=== PATIENT | female | born 1940 | race Caucasian/White ===

== ENCOUNTER → 2019-04-11 | Outpatient (CLI) | payer OTHER | END | disposition home or self-care (01) | LOC: RAH 09:48 → EDBD 10:30 | PROVIDERS: ATTEND Internal Medicine Cardiovascular Disease | DX: R16.0 Hepatomegaly, not elsewhere classified (principal); I70.0 Atherosclerosis of aorta | CPT/HCPCS: 76700 ==

== ENCOUNTER 2019-07-31 12:53 | Inpatient (IN) | payer OTHER ==
[~2019-07-31] VITALS: Ht 165.1 cm; Wt 75.4 kg
[2019-07-31] MEDS ORDERED: ONDANSETRON HCL 4 MG/2 ML VIAL ONE (13:36)
[2019-07-31 15:39] LABS: BASOPHILS % (AUTO) 0.3 % (0.0-5.0); EOSINOPHILS % (AUTO) 0.1 % (0.0-8.0); HEMATOCRIT 27.3 % (36-48); LYMPHOCYTES % (AUTO) 16.2 % (21.0-51.0); MEAN CORPUSCULAR HEMOGLOBIN 25.1 pg (27.0-33.0); MEAN CORPUSCULAR HGB CONC 29.7 g/dL (32.0-36.0); MEAN CORPUSCULAR VOLUME 84.5 fL (79-99); MONOCYTES % (AUTO) 10.3 % (3.0-13.0); NEUTROPHILS % (AUTO) 72.6 % (40.0-77.0); NUCLEATED RED BLOOD CELLS 0.6 % (0.0-0.19); PLATELET COUNT (AUTO) 386 K/uL (130-400); RED BLOOD CELL COUNT(AUTO) 3.23 MIL/uL (4.00-5.50); RED CELL DISTRIBUTION WIDTH 18.7 % (11.0-15.5); WHITE BLOOD COUNT (AUTO) 9.3 K/uL (4.8-10.8)
[2019-07-31 15:56] LABS: CREATININE 0.9 mg/dL (0.5-1.5); POTASSIUM 3.6 mmol/L (3.5-5.1)
[2019-07-31 15:59] LABS: INR 1.25 (0.85-1.15); PARTIAL THROMBOPLASTIN TIME 27.4 SEC (26.3-35.5); PROTHROMBIN TIME 13.4 SEC (9.6-11.6)
[2019-07-31 16:01] LABS: BILIRUBIN,TOTAL 0.9 mg/dL (0.2-1.0); TOTAL PROTEIN, SERUM 6.5 g/dL (6.0-8.3)
[2019-07-31] MEDS ORDERED: FUROSEMIDE 10 MG/ML 2ML VIAL IV SCH (18:15)
[2019-07-31] MEDS ORDERED: FUROSEMIDE 10 MG/ML 2ML VIAL ONE (18:44)
[2019-07-31] MEDS ORDERED: METOCLOPRAMIDE 10 MG/2 ML VIAL ONE (18:44)
[2019-07-31] MEDS ORDERED: NITROGLYCERIN 0.4 MG SL TAB SL PRN (19:00)
[2019-07-31] MEDS ORDERED: ONDANSETRON HCL 4 MG/2 ML VIAL IV PRN (19:00)
[2019-07-31] MEDS ORDERED: HYDRALAZINE HCL 20 MG/ML VIAL IV PRN (19:00)
[2019-07-31] MEDS ORDERED: ACETAMINOPHEN 325 MG TAB PO PRN (19:00)
[2019-07-31] MEDS ORDERED: LACTULOSE 20 GM/30 ML UDCUP PO PRN (19:00)
[2019-07-31 22:23] LABS: TROPONIN I 0.05 ng/mL (0.00-0.06)
[2019-07-31 22:35] LABS: APPEARANCE,URINE Clear (CLEAR); BILIRUBIN,URINE Negative (NEGATIVE); COLOR,URINE Yellow (YELLOW); GLUCOSE, URINE (UA) Negative (NEGATIVE); KETONES,URINE Trace mg/dL (NEGATIVE); LEUKOCYTE ESTERASE ,URINE Moderate (NEGATIVE); NITRATE,URINE Negative (NEGATIVE); OCCULT BLOOD,URINE Negative (NEGATIVE); PROTEIN,URINE POS 1+ mg/dL (NEGATIVE); UROBILINOGEN,URINE 0.2 mg/dL (0.2-1.0)
[2019-07-31 22:54] LABS: BACTERIA,URINE None Seen /HPF (None Seen); MUCUS,URINE Few LPF (None Seen); RBC,URINE None Seen /HPF (0-1); SQUAMOUS EPITHELIAL CELL,UR Few /HPF (0-2)
[2019-07-31 22:59] VITALS: BP 132/74
[2019-08-01 03:31] VITALS: BP 133/61
[2019-08-01 04:32] LABS: BASOPHILS % (AUTO) 0.4 % (0.0-5.0); EOSINOPHILS % (AUTO) 0.2 % (0.0-8.0); HEMATOCRIT 25.9 % (36-48); LYMPHOCYTES % (AUTO) 16.6 % (21.0-51.0); MEAN CORPUSCULAR HEMOGLOBIN 25.3 pg (27.0-33.0); MEAN CORPUSCULAR HGB CONC 29.7 g/dL (32.0-36.0); MEAN CORPUSCULAR VOLUME 85.2 fL (79-99); MONOCYTES % (AUTO) 11.3 % (3.0-13.0); NEUTROPHILS % (AUTO) 70.8 % (40.0-77.0); NUCLEATED RED BLOOD CELLS 0.9 % (0.0-0.19); PLATELET COUNT (AUTO) 321 K/uL (130-400); RED BLOOD CELL COUNT(AUTO) 3.04 MIL/uL (4.00-5.50); RED CELL DISTRIBUTION WIDTH 18.9 % (11.0-15.5)
[2019-08-01 05:07] LABS: CREATININE 0.9 mg/dL (0.5-1.5); THYROID STIMULATING HORMONE 8.4 uIU/mL (0.36-3.74)
[2019-08-01] MEDS: LEVOTHYROXINE 100 MCG TABLET PO SCH (06:06)
[2019-08-01] MEDS: ACETAMINOPHEN 325 MG TAB PO PRN ×2 (06:20→18:56)
[2019-08-01] MEDS ORDERED: PANTOPRAZOLE 40 MG/VIAL IVP SCH (07:30)
[2019-08-01 07:51] VITALS: BP 139/75
[2019-08-01] MEDS: FAMOTIDINE 20MG TAB 20 MG TAB PO SCH (10:27)
[2019-08-01] MEDS: FUROSEMIDE 10 MG/ML 2ML VIAL IV SCH ×2 (10:27→18:20)
[2019-08-01] MEDS: AMLODIPINE BESYLATE 5 MG TAB PO SCH (10:27)
[2019-08-01] MEDS: PANTOPRAZOLE SODIUM 40 MG TABLET.DR PO SCH ×2 (10:27→16:47)
[2019-08-01 10:58] VITALS: BP 136/76
--- NOTE | 2019-08-01 12:45 | NUR ---
DCP CM met with pt discussed dc plans. Pt is semi-independent prior to admission, lives at home with spouse. Pt has a walker. Denies any other equipments/services. Feels safe to go back home, spouse able to assist with transportation and needs as necessary. DC plan to home once stable. CM to cont to follow up. Addendum: 08/01/19 at 1246 by HANS ARIZMENDI LVN CM Amended: Links added.
[2019-08-01] MEDS ORDERED: SUCR1TAB2 PO (15:41)
[2019-08-01] MEDS ORDERED: LEVO100T4 PO (15:41)
[2019-08-01] MEDS ORDERED: MELA5TAB14 PO (15:41)
[2019-08-01] MEDS ORDERED: FLUO40CA49 PO (15:41)
[2019-08-01] MEDS ORDERED: LIDO700A30 TP (15:41)
[2019-08-01 16:24] VITALS: BP 130/67
[2019-08-01 20:16] VITALS: BP 122/70
[2019-08-01 23:35] VITALS: BP 127/79
[2019-08-02] MEDS: FUROSEMIDE 10 MG/ML 2ML VIAL IV SCH ×3 (02:11→23:59)
[2019-08-02 04:26] VITALS: BP 115/69
[2019-08-02 04:56] LABS: BASOPHILS % (AUTO) 0.7 % (0.0-5.0); HEMATOCRIT 25.9 % (36-48); LYMPHOCYTES % (AUTO) 18.4 % (21.0-51.0); MEAN CORPUSCULAR HEMOGLOBIN 24.8 pg (27.0-33.0); MEAN CORPUSCULAR HGB CONC 29.7 g/dL (32.0-36.0); MEAN CORPUSCULAR VOLUME 83.3 fL (79-99); MONOCYTES % (AUTO) 12.3 % (3.0-13.0); NEUTROPHILS % (AUTO) 67.2 % (40.0-77.0); NUCLEATED RED BLOOD CELLS 0.7 % (0.0-0.19); PLATELET COUNT (AUTO) 303 K/uL (130-400); RED BLOOD CELL COUNT(AUTO) 3.11 MIL/uL (4.00-5.50); RED CELL DISTRIBUTION WIDTH 19.4 % (11.0-15.5); WHITE BLOOD COUNT (AUTO) 6.8 K/uL (4.8-10.8)
[2019-08-02 05:09] LABS: B-TYPE NATRIURETIC PEPTIDE 327 pg/mL (0-100)
[2019-08-02 05:46] LABS: CREATININE 1.2 mg/dL (0.5-1.5); MAGNESIUM 1.6 mg/dL (1.80-2.40); PHOSPHORUS 3.1 mg/dL (2.5-4.9); POTASSIUM 3.2 mmol/L (3.5-5.1)
[2019-08-02] MEDS: LEVOTHYROXINE 100 MCG TABLET PO SCH (06:41)
[2019-08-02] MEDS: PANTOPRAZOLE SODIUM 40 MG TABLET.DR PO SCH ×2 (06:41→16:27)
[2019-08-02 08:00] VITALS: BP 128/74
[2019-08-02] MEDS: FAMOTIDINE 20MG TAB 20 MG TAB PO SCH (09:07)
[2019-08-02] MEDS: AMLODIPINE BESYLATE 5 MG TAB PO SCH (09:08)
[2019-08-02 12:00] VITALS: BP 125/71
--- NOTE | 2019-08-02 12:30 | NUR ---
DR. DELGADO IN TO SEE PT.ORDERS THEN GIVEN. PLAN FOR A ZARIA IN AM AND HAS EXPLAINED TO PT. AND FAMILY MEMBER PROCEDURE
[2019-08-02] MEDS: FERROUS SULFATE 325 MG TABLET.DR PO SCH ×3 (13:20→22:00)
[2019-08-02] MEDS: ACETAMINOPHEN 325 MG TAB PO PRN ×2 (13:22→20:52)
[2019-08-02 16:00] VITALS: BP 129/72
[2019-08-02] MEDS ORDERED: POTASSIUM CHLORIDE 20 MEQ ERTAB PO SCH (16:00)
[2019-08-02] MEDS ORDERED: MAGNESIUM 2GM PREMIX 50ML 50 ML IV SCH (16:00)
--- NOTE | 2019-08-02 16:00 | NUR ---
STATES VERY TIRED AND FEELS WEAK, LOOKS FRAIL
--- NOTE | 2019-08-02 18:00 | NUR ---
WILL OBTAIN CONSENT FOR ZARIA.
[2019-08-02 20:48] VITALS: BP 119/70
[2019-08-02] MEDS ORDERED: MAGNESIUM OXIDE 400 MG TABLET PO ONE (23:42)
[2019-08-02] MEDS: MAGNESIUM OXIDE 400 MG TABLET PO SCH (23:49)
[2019-08-03] VITALS (15 sets, daily range): BP systolic 107–134; BP diastolic 62–74
[2019-08-03] MEDS: LEVOTHYROXINE 100 MCG TABLET PO SCH (05:47)
[2019-08-03] MEDS: FERROUS SULFATE 325 MG TABLET.DR PO SCH ×3 (06:00→21:20)
[2019-08-03] MEDS ORDERED: LIDOCAINE HCL-MPF 1% 2ML VIAL IV PRN (06:30)
[2019-08-03] MEDS ORDERED: POTASSIUM CHLORIDE 20MEQ/100ML 100 ML IV PRN (06:30)
[2019-08-03 06:31] LABS: BASOPHILS % (AUTO) 0.6 % (0.0-5.0); EOSINOPHILS % (AUTO) 0.6 % (0.0-8.0); HEMATOCRIT 25.7 % (36-48); LYMPHOCYTES % (AUTO) 17.6 % (21.0-51.0); MEAN CORPUSCULAR HEMOGLOBIN 24.8 pg (27.0-33.0); MEAN CORPUSCULAR VOLUME 82.6 fL (79-99); MONOCYTES % (AUTO) 10.6 % (3.0-13.0); NUCLEATED RED BLOOD CELLS 0.4 % (0.0-0.19); PLATELET COUNT (AUTO) 248 K/uL (130-400); RED BLOOD CELL COUNT(AUTO) 3.11 MIL/uL (4.00-5.50); RED CELL DISTRIBUTION WIDTH 19.3 % (11.0-15.5); WHITE BLOOD COUNT (AUTO) 7.1 K/uL (4.8-10.8)
[2019-08-03 06:52] LABS: INR 1.24 (0.85-1.15); PARTIAL THROMBOPLASTIN TIME 29.7 SEC (26.3-35.5); PROTHROMBIN TIME 13.3 SEC (9.6-11.6)
[2019-08-03 07:23] LABS: B-TYPE NATRIURETIC PEPTIDE 395 pg/mL (0-100)
[2019-08-03] MEDS: PANTOPRAZOLE SODIUM 40 MG TABLET.DR PO SCH ×2 (07:30→16:39)
[2019-08-03 08:07] LABS: CREATININE 1.1 mg/dL (0.5-1.5); MAGNESIUM 1.7 mg/dL (1.80-2.40); PHOSPHORUS 2.8 mg/dL (2.5-4.9); POTASSIUM 3.1 mmol/L (3.5-5.1)
[2019-08-03] MEDS: KETOROLAC TROMETHAMINE 15MG/ML IV PRN (08:18)
[2019-08-03] MEDS: VITAMIN B COMPLEX 1 CAPSULE PO SCH (09:00)
[2019-08-03] MEDS ORDERED: LIDOCAINE HCL 2% VISCOUS 15 ML UDCUP ONE (10:24)
[2019-08-03] MEDS ORDERED: MIDAZOLAM HCL 1 MG/ML 2ML VIAL ONE (10:25)
[2019-08-03] MEDS ORDERED: FENTANYL CITRATE PF 50 MCG/1 ML 2ML VIAL ONE (10:25)
--- NOTE | 2019-08-03 11:15 | NUR ---
ZARIA PROCEDURE PERFORMED BY DR Ana CARDONA AND TOLERATED PROCEDURE. END OF PROCEDURE AT 1050. PATIENT RECOVERED IN PROCEDURE ROOM. REPORT GIVEN TO Shelby GREEN RN AND PATIENT TRANSPORTED TO [facility] VIA BED AT 1115. DROWSY AND RESPONDS TO STIMULI WITH NO C/O PAIN.
[2019-08-03] MEDS: MAGNESIUM OXIDE 400 MG TABLET PO SCH (23:02)
[2019-08-04] VITALS (7 sets, daily range): BP systolic 117–139; BP diastolic 59–75
[2019-08-04 04:31] LABS: BASOPHILS % (AUTO) 0.5 % (0.0-5.0); EOSINOPHILS % (AUTO) 0.6 % (0.0-8.0); HEMATOCRIT 24.9 % (36-48); LYMPHOCYTES % (AUTO) 19.5 % (21.0-51.0); MEAN CORPUSCULAR HEMOGLOBIN 24.1 pg (27.0-33.0); MEAN CORPUSCULAR HGB CONC 29.3 g/dL (32.0-36.0); MEAN CORPUSCULAR VOLUME 82.2 fL (79-99); MONOCYTES % (AUTO) 13.3 % (3.0-13.0); NEUTROPHILS % (AUTO) 65.8 % (40.0-77.0); NUCLEATED RED BLOOD CELLS 0.5 % (0.0-0.19); PLATELET COUNT (AUTO) 227 K/uL (130-400); RED BLOOD CELL COUNT(AUTO) 3.03 MIL/uL (4.00-5.50); RED CELL DISTRIBUTION WIDTH 19.6 % (11.0-15.5); WHITE BLOOD COUNT (AUTO) 6.5 K/uL (4.8-10.8)
[2019-08-04 04:51] LABS: INR 1.25 (0.85-1.15); PARTIAL THROMBOPLASTIN TIME 30.8 SEC (26.3-35.5); PROTHROMBIN TIME 13.4 SEC (9.6-11.6)
[2019-08-04 04:59] LABS: ALBUMIN 2.6 g/dL (3.5-5.0); BILIRUBIN,TOTAL 0.7 mg/dL (0.2-1.0); CREATININE 1.1 mg/dL (0.5-1.5); POTASSIUM 3.3 mmol/L (3.5-5.1); TOTAL PROTEIN, SERUM 5.6 g/dL (6.0-8.3)
[2019-08-04] MEDS ORDERED: LIDOCAINE HCL-MPF 1% 2ML VIAL IV PRN (05:30)
[2019-08-04] MEDS ORDERED: POTASSIUM CHLORIDE 10% ELIXIR 20 MEQ/15 ML UDCUP PO PRN (05:30)
[2019-08-04] MEDS ORDERED: POTASSIUM CHLORIDE 10MEQ/100ML 100 ML IV PRN (05:30)
[2019-08-04] MEDS: LEVOTHYROXINE 100 MCG TABLET PO SCH (05:47)
[2019-08-04] MEDS: FERROUS SULFATE 325 MG TABLET.DR PO SCH ×3 (05:47→20:50)
[2019-08-04] MEDS: PANTOPRAZOLE SODIUM 40 MG TABLET.DR PO SCH ×2 (05:47→16:46)
[2019-08-04] MEDS: POTASSIUM CHLORIDE 20 MEQ ERTAB PO PRN ×2 (05:49→20:53)
--- NOTE | 2019-08-04 07:25 | NUR ---
Gilmar DIALLO PA-C, IN ROOM SPEAKING WITH PT. RE:PLAN OF CARE INCLUDING, DR. MACIEL CONSULT. PT. VERBALIZED UNDERSTANDING.
[2019-08-04] MEDS: VITAMIN B COMPLEX 1 CAPSULE PO SCH (07:53)
--- NOTE | 2019-08-04 10:15 | NUR ---
DR. Palak PEOPLES IN ROOM SPEAKING WITH PT. RE:PLAN OF CARE AND ANSWERING QUESTIONS.
--- NOTE | 2019-08-04 10:51 | NUR ---
NOTIFIED RAFAEL FISHMAN, RE:PT. WITH 12 BEATS ABERRANT CONDUCTION, PT. ASYMPTOMATIC. VERBALIZED UNDERSTANDING. NO NEW ORDERS RECEIVED AT THIS TIME.
[2019-08-04] MEDS ORDERED: PHARMACY COMMUNICATION MISC SCH ×2 (14:00→14:30)
--- NOTE | 2019-08-04 14:12 | NUR ---
DR. JERONIMO IN ROOM SPEAKING WITH PT. RE:PLAN OF CARE. QUESTIONS ANSWERED BY DR. JERONIMO, PT. VERBALIZED UNDERSTANDING.
[2019-08-04] MEDS: LEVOFLOXACIN 500 MG/D5W 100 ML 100 ML IV SCH (16:46)
--- NOTE | 2019-08-04 20:30 | NUR ---
Dr.Sheriff Bernal jewel hole driller,made rounds and updated with patient status and plan of care,received order to place patient for Cardiac cath on Wednesday and keep patient NPO postmidnight on Wednesday.
[2019-08-04] MEDS: MAGNESIUM OXIDE 400 MG TABLET PO SCH (20:49)
[2019-08-04] MEDS: LISINOPRIL 2.5 MG TABLET PO SCH (20:50)
[2019-08-04] MEDS: FUROSEMIDE 20 MG TABLET PO SCH (20:50)
[2019-08-04] MEDS: ACETAMINOPHEN 325 MG TAB PO PRN (22:56)
[2019-08-04] MEDS ORDERED: KETOROLAC TROMETHAMINE 15MG/ML ONE (23:55)
[2019-08-04] MEDS: KETOROLAC TROMETHAMINE 15MG/ML IV PRN (23:58)
--- NOTE | 2019-08-05 | NUR ---
Patient c/o unable to sleep and her left upper chest hurts ,denies chest pain,palpitation and shortness of breath.No ST T changes on the monitor per desk monitor.PRN Toradol IV given.Will continue to monitor pt.
--- NOTE | 2019-08-05 02:08 | NUR ---
Patient resting well, respirations even and non labored.
[2019-08-05 03:20] VITALS: BP 114/70
[2019-08-05] MEDS: FERROUS SULFATE 325 MG TABLET.DR PO SCH ×3 (05:57→20:34)
[2019-08-05] MEDS: LEVOTHYROXINE 100 MCG TABLET PO SCH (05:57)
[2019-08-05] MEDS: PANTOPRAZOLE SODIUM 40 MG TABLET.DR PO SCH ×2 (05:57→16:19)
--- NOTE | 2019-08-05 07:17 | NUR ---
Endorsed care to incoming NOD using SBAR,all questions answered.Patient remained stable.O2 Sats remained 100% on room air through the night.
[2019-08-05 08:00] VITALS: BP 121/67
[2019-08-05] MEDS: VITAMIN B COMPLEX 1 CAPSULE PO SCH (09:39)
[2019-08-05] MEDS: FUROSEMIDE 20 MG TABLET PO SCH ×2 (09:39→20:34)
[2019-08-05] MEDS: LISINOPRIL 2.5 MG TABLET PO SCH (09:39)
--- NOTE | 2019-08-05 10:15 | NUR ---
DR. Rodrigue JERONIMO IN ROOM SPEAKING WITH PT. RE:PLAN OF CARE. QUESTIONS ANSWERED BY DR. JERONIMO.
[2019-08-05 11:38] VITALS: BP 125/76
[2019-08-05] MEDS ORDERED: MAG HYDROX/AL HYDROX/SIMETH ES 30 ML SUSP UDCUP PO PRN (14:45)
[2019-08-05 16:00] VITALS: BP 124/73
[2019-08-05] MEDS: LEVOFLOXACIN 500 MG/D5W 100 ML 100 ML IV SCH (16:19)
[2019-08-05 19:39] VITALS: BP 108/62
[2019-08-05 23:04] VITALS: BP 111/65
[2019-08-06] MEDS ORDERED: TEMAZEPAM 7.5 MG CAPSULE PO ONE ×2 (00:42→00:45)
[2019-08-06] MEDS: MAGNESIUM OXIDE 400 MG TABLET PO SCH ×2 (00:43→19:23)
[2019-08-06 04:34] LABS: HEMATOCRIT 25.9 % (36-48); MEAN CORPUSCULAR HGB CONC 28.6 g/dL (32.0-36.0); MEAN CORPUSCULAR VOLUME 84.1 fL (79-99); NUCLEATED RED BLOOD CELLS 0.3 % (0.0-0.19); RED BLOOD CELL COUNT(AUTO) 3.08 MIL/uL (4.00-5.50); RED CELL DISTRIBUTION WIDTH 20.1 % (11.0-15.5); WHITE BLOOD COUNT (AUTO) 6.8 K/uL (4.8-10.8)
[2019-08-06 04:36] VITALS: BP 121/66
[2019-08-06 04:47] LABS: CREATININE 1.1 mg/dL (0.5-1.5); POTASSIUM 3.4 mmol/L (3.5-5.1)
[2019-08-06] MEDS: FERROUS SULFATE 325 MG TABLET.DR PO SCH ×3 (06:12→20:08)
[2019-08-06] MEDS: PANTOPRAZOLE SODIUM 40 MG TABLET.DR PO SCH ×2 (06:12→16:47)
[2019-08-06] MEDS: LEVOTHYROXINE 100 MCG TABLET PO SCH (06:13)
[2019-08-06 08:00] VITALS: BP 121/67
[2019-08-06] MEDS: VITAMIN B COMPLEX 1 CAPSULE PO SCH (09:58)
[2019-08-06] MEDS: FUROSEMIDE 20 MG TABLET PO SCH ×2 (09:59→20:09)
[2019-08-06] MEDS: LISINOPRIL 2.5 MG TABLET PO SCH (09:59)
[2019-08-06 12:00] VITALS: BP 117/69
[2019-08-06 16:00] VITALS: BP 129/66
[2019-08-06] MEDS: LEVOFLOXACIN 500 MG/D5W 100 ML 100 ML IV SCH (16:47)
[2019-08-06] MEDS ORDERED: TRAZODONE HCL 50 MG TAB PO SCH (19:23)
[2019-08-06 19:41] VITALS: BP 101/60
[2019-08-06] MEDS: ATORVASTATIN CALCIUM 40 MG TABLET PO SCH (20:09)
[2019-08-06] MEDS: ACETAMINOPHEN 325 MG TAB PO PRN (20:10)
[2019-08-06 23:40] VITALS: BP 116/64
[2019-08-07] VITALS (11 sets, daily range): BP systolic 116–128; BP diastolic 43–76
[2019-08-07 05:15] LABS: HEMATOCRIT 26.9 % (36-48); MEAN CORPUSCULAR HEMOGLOBIN 24.4 pg (27.0-33.0); MEAN CORPUSCULAR HGB CONC 29.7 g/dL (32.0-36.0); RED BLOOD CELL COUNT(AUTO) 3.28 MIL/uL (4.00-5.50); RED CELL DISTRIBUTION WIDTH 19.9 % (11.0-15.5); WHITE BLOOD COUNT (AUTO) 7.3 K/uL (4.8-10.8)
[2019-08-07 05:35] LABS: CREATININE 1.2 mg/dL (0.5-1.5); POTASSIUM 3.5 mmol/L (3.5-5.1)
[2019-08-07] MEDS: FERROUS SULFATE 325 MG TABLET.DR PO SCH ×3 (06:07→20:22)
[2019-08-07] MEDS: PANTOPRAZOLE SODIUM 40 MG TABLET.DR PO SCH ×2 (06:07→15:57)
[2019-08-07] MEDS: LEVOTHYROXINE 100 MCG TABLET PO SCH (06:07)
[2019-08-07 06:11] LABS: % IRON SATURATION 6.2 % (22-44)
--- NOTE | 2019-08-07 07:40 | NUR ---
ASSESSMENT PT IS AAOX3 DENIES CP DENIES SOB DENIES NV RESTING IN BED. CALL LIGHT WITHIN REACH. I YOEL ANN ROUNDED PLAN FOR [facility] TODAY BY DR DELGADO OR DR LESLIE. PT IS NPO PENDING PROCEDURE.
[2019-08-07] MEDS: ASPIRIN 325MG EC TAB 325 MG TABLET.DR PO SCH (09:00)
[2019-08-07] MEDS: VITAMIN B COMPLEX 1 CAPSULE PO SCH (09:00)
[2019-08-07] MEDS: FUROSEMIDE 20 MG TABLET PO SCH ×2 (09:07→20:22)
[2019-08-07] MEDS: LISINOPRIL 2.5 MG TABLET PO SCH (09:07)
[2019-08-07] MEDS: POTASSIUM CHLORIDE 20 MEQ ERTAB PO PRN ×2 (09:09→20:23)
[2019-08-07] MEDS ORDERED: MIDAZOLAM HCL 1 MG/ML 2ML VIAL ONE (10:24)
[2019-08-07] MEDS ORDERED: FENTANYL CITRATE PF 50 MCG/1 ML 2ML VIAL ONE (10:24)
[2019-08-07] MEDS ORDERED: IOHEXOL 350 MG/ML 100ML INFUS..BTL IV ONE (10:24)
[2019-08-07] MEDS ORDERED: LIDOCAINE HCL 2% 20ML ONE (10:24)
[2019-08-07] MEDS ORDERED: SODIUM BICARB 50MEQ 50ML VIAL ONE (10:24)
[2019-08-07] MEDS ORDERED: HEPARIN SODIUM 1000UNIT/ML 10ML VIAL ONE (10:24)
--- NOTE | 2019-08-07 10:51 | NUR ---
DOWN TO [facility] VIA BED WITH TYING MACHINE OPERATOR LUMBER STAFF
[2019-08-07] MEDS ORDERED: IOHEXOL-350 50ML VIAL IV ONE (11:24)
--- NOTE | 2019-08-07 13:00 | NUR ---
RETURNED FROM SOUS CHEF KITCHEN MANAGER AAOX3 DENIES CP DENIES SOB DENIES NV NO COMPLAINTS. RIGHT GROIN PERCLOSE DRESSING IN PLACE. BEDREST IN PROGRESS. CALL LIGHT WITHIN REACH.
[2019-08-07] MEDS: ACETAMINOPHEN 325 MG TAB PO PRN (15:58)
--- NOTE | 2019-08-07 16:00 | NUR ---
FAILED ATTEMPTS AT IV STARTS X2 DR PEOPLES MADE AWARE. OK TO USE RIGHT ARM FOR PIV. OK TO START PICC LINE IF UNSUCCESSFUL AT STARTING NEW PIV. CALLED DAYPATIENT DIRECTOR TO SEE IF PICC LINE NURSE CAN ATTEMPT PIV WITH USE OF ULTRASOUND, DIRECTOR SYBIL SAID SHE WILL LET PICC LINE NURSE KNOW TO TRY PIV WITH ULTRASOUND.
--- NOTE | 2019-08-07 16:55 | NUR ---
PT NOTED TO HAVE LEFT CHEST PACEMAKER. PHONE CALL MADE TO DR. ELDRIDGE BOG CUTTER FOR RECOMMENDATIONS. 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 DR. ELDRIDGE REQUESTED THAT PICC LINE ORDER CHANGED TO MIDLINE CATHETER INSERTION IN LEFT ARM TO AVOID PROBLEMS WITH PACEMAKER LEADS. PT MADE AWARE OF CHANGE OF PLANS AND OKAYED TO PROCEED. LEFT BRACHIAL VEIN ACCESSED, 5 FR. 2 LUMEN CATHETER INSERTED TO 15CM MIDLINE, USING ASEPTIC TECHNIQUE. STERILE DRESSING APPLIED AND LABELLED "MIDLINE" AND HUBERT RODNEY ADVISED TO FLUSH GENTLY. MIDLINE IS OK TO USE, NO CHEST XRAY NEEDED. Addendum: 08/07/19 at 2042 by ELDA CUMMINGS RN RN CORRECTION OF TIME FROM PREVIOUS NOTE. PHONE CALL MADE TO DR. ELDRIDGE @ 0413.
--- NOTE | 2019-08-07 18:30 | NUR ---
PICC LINE ORDER RECEIVED
[2019-08-07 18:58] LABS: INR 1.28 (0.85-1.15); PROTHROMBIN TIME 13.7 SEC (9.6-11.6)
--- NOTE | 2019-08-07 19:10 | NUR ---
PICC LINE NURSE IN ROOM, STATES SHE WILL BE DOING A MIDLINE IN LEFT UPPER ARM DUE TO PACEMAKER PLACEMENT. SHE SPOKE TO DR. ELDRIDGE IN REGARDS TO THIS CHANGE. PTT LEVELS NOW UPDATED.
[2019-08-07] MEDS: LEVOFLOXACIN 500 MG/D5W 100 ML 100 ML IV SCH (20:21)
[2019-08-07] MEDS: ATORVASTATIN CALCIUM 40 MG TABLET PO SCH (20:21)
--- NOTE | 2019-08-07 20:30 | NUR ---
MIDLINE INSERTED TO LEFT UPPER ARM. 5FR. DOUBLE LUMEN. PATENT. EDEMA NOTED TO LEFT ARM, PRIOR TO MIDLINE INSERTION. PT ARM IS ELEVATED. STARTED ON NS @100ML/HR. X4HRS. LEVAQUIN INITIATED AT THIS TIME. NO PAIN OR SOB NOTED. NO DISTRESS NOTED. PT STATES NO FURTHER CONCERNS.
[2019-08-08 03:58] VITALS: BP 137/60
[2019-08-08] MEDS: LEVOTHYROXINE 100 MCG TABLET PO SCH (05:15)
[2019-08-08] MEDS: FERROUS SULFATE 325 MG TABLET.DR PO SCH ×3 (05:15→20:19)
[2019-08-08] MEDS: PANTOPRAZOLE SODIUM 40 MG TABLET.DR PO SCH ×2 (05:15→15:46)
[2019-08-08 05:52] LABS: POTASSIUM 3.4 mmol/L (3.5-5.1)
[2019-08-08 07:58] VITALS: BP 146/78
[2019-08-08] MEDS: ASPIRIN 325MG EC TAB 325 MG TABLET.DR PO SCH (09:00)
[2019-08-08] MEDS: LISINOPRIL 2.5 MG TABLET PO SCH (09:14)
[2019-08-08] MEDS: VITAMIN B COMPLEX 1 CAPSULE PO SCH (09:14)
[2019-08-08] MEDS: FUROSEMIDE 20 MG TABLET PO SCH ×2 (09:15→20:18)
[2019-08-08 11:51] VITALS: BP 132/63
--- NOTE | 2019-08-08 13:35 | NUR ---
RDSCREEN - LOS X 8 Pt admitted with GBW, s/p CABG. Pt with Heart Healthy diet order in place. Pt reports decreased appetite d/t altered taste. Pt reports still feeling weakness. Pt also reports constipation, RN notified. Noted Generalized/LUE 2+ pitting edema. Recommend 60mL ProMod BID Recommend Ensure (Vanilla) QD Stool softener/laxative for constipation RD to continue to monitor. Please notify as additional nutrition concerns arise. Thank you. Addendum: 08/08/19 at [address] RD Amended: Links added.
[2019-08-08 16:00] VITALS: BP 145/76
[2019-08-08] MEDS: POTASSIUM CHLORIDE 20 MEQ ERTAB PO PRN (16:11)
[2019-08-08] MEDS: LEVOFLOXACIN 500 MG/D5W 100 ML 100 ML IV SCH (18:26)
[2019-08-08 19:30] VITALS: BP_SYST 124; BP_SYST 129; BP_DIAS 65; BP_DIAS 75
[2019-08-08] MEDS: ATORVASTATIN CALCIUM 40 MG TABLET PO SCH (20:18)
[2019-08-09] VITALS: BP 118/66
--- NOTE | 2019-08-09 02:00 | NUR ---
Patient was referred to a hospital in [facility] for higher level of care. Report called to Michael Ramos RN Jimena at 0045. EMS arrived at 0200 to transfer patient.
== END 2019-08-09 02:05 | disposition short-term general hospital (02) | DRG 286 ==
LOC: EDH 12:53 → EDHIP 18:48 → 4CH 22:53
PROVIDERS: ADMIT Internal Medicine; ATTEND Internal Medicine
PROC: 4B02XSZ Measurement of Cardiac Pacemaker, External Approach (ICD-10-PCS; 2019-08-01)
PROC: B246ZZ4 Ultrasonography of Right and Left Heart, Transesophageal (ICD-10-PCS; 2019-08-03)
PROC: 4A023N8 Measurement of Cardiac Sampling and Pressure, Bilateral, Percutaneous Approach (ICD-10-PCS; principal; 2019-08-07)
PROC: B2151ZZ Fluoroscopy of Left Heart using Low Osmolar Contrast (ICD-10-PCS; 2019-08-07)
PROC: B2111ZZ Fluoroscopy of Multiple Coronary Arteries using Low Osmolar Contrast (ICD-10-PCS; 2019-08-07)
DX: I11.0 Hypertensive heart disease with heart failure (principal); I50.31 Acute diastolic (congestive) heart failure; I48.19 Other persistent atrial fibrillation; Q21.0 Ventricular septal defect; N39.0 Urinary tract infection, site not specified; I42.1 Obstructive hypertrophic cardiomyopathy; D64.9 Anemia, unspecified; E03.9 Hypothyroidism, unspecified; E87.6 Hypokalemia; E87.8 Other disorders of electrolyte and fluid balance, not elsewhere classified; I08.1 Rheumatic disorders of both mitral and tricuspid valves; I25.10 Atherosclerotic heart disease of native coronary artery without angina pectoris; I27.20 Pulmonary hypertension, unspecified; F41.9 Anxiety disorder, unspecified; B96.4 Proteus (mirabilis) (morganii) as the cause of diseases classified elsewhere; R62.7 Adult failure to thrive; Z79.899 Other long term (current) drug therapy; Z82.49 Family history of ischemic heart disease and other diseases of the circulatory system; Z85.3 Personal history of malignant neoplasm of breast; Z90.710 Acquired absence of both cervix and uterus; Z98.84 Bariatric surgery status; Z90.49 Acquired absence of other specified parts of digestive tract; Z88.5 Allergy status to narcotic agent; Z88.0 Allergy status to penicillin; Z95.0 Presence of cardiac pacemaker; Z95.1 Presence of aortocoronary bypass graft; Z68.27 Body mass index [BMI] 27.0-27.9, adult
CPT/HCPCS: 36415; 71045; 80048; 80053; 81001; 82270; 82550; 82728; 82948; 83540; 83550; 83735; 83874; 83880; 84100; 84145; 84443; 84484; 85025; 85027; 85610; 85730; 87077; 87088; 87186; 93005; 93306; 93313; 93356; 93453; 99152; 99153; 99156; 99157; A4344; C1760; C1769; C1894; C9113; G0378; J1644; J1885; J1940; J1956; J2250; J2405; J2765; J3010; J3475; J3490; Q9967

== ENCOUNTER 2019-11-27 12:34 | Emergency (ER) | payer OTHER ==
[~2019-11-27 12:34] MED LIST: FLUO40CA49 PO; LEVO100T4 PO; LIDO700A30 TP; MELA5TAB14 PO; SUCR1TAB2 PO
[2019-11-27 13:25] LABS: BASOPHILS % (AUTO) 0.4 % (0.0-5.0); EOSINOPHILS % (AUTO) 0.1 % (0.0-8.0); HEMATOCRIT 42.2 % (36-48); MEAN CORPUSCULAR HEMOGLOBIN 29.8 pg (27.0-33.0); MEAN CORPUSCULAR HGB CONC 32.2 g/dL (32.0-36.0); MEAN CORPUSCULAR VOLUME 92.5 fL (79-99); MONOCYTES % (AUTO) 12.1 % (3.0-13.0); PLATELET COUNT (AUTO) 232 K/uL (130-400); RED BLOOD CELL COUNT(AUTO) 4.56 MIL/uL (4.00-5.50); RED CELL DISTRIBUTION WIDTH 15.3 % (11.0-15.5); WHITE BLOOD COUNT (AUTO) 10.3 K/uL (4.8-10.8)
[2019-11-27 13:41] LABS: INR 1.04 (0.85-1.15); PARTIAL THROMBOPLASTIN TIME 23.9 SEC (26.3-35.5); PROTHROMBIN TIME 11.2 SEC (9.6-11.6)
[2019-11-27 13:52] LABS: ALBUMIN 3.1 g/dL (3.5-5.0); BILIRUBIN,TOTAL 1.8 mg/dL (0.2-1.0); CREATININE 1.3 mg/dL (0.5-1.5); MAGNESIUM 2.3 mg/dL (1.80-2.40); POTASSIUM 4.6 mmol/L (3.5-5.1); T4 (THYROXINE) 11.6 ug/dL (4.7-13.3); THYROID STIMULATING HORMONE 0.81 uIU/mL (0.36-3.74); TOTAL PROTEIN, SERUM 7.7 g/dL (6.0-8.3)
[2019-11-27 13:55] LABS: B-TYPE NATRIURETIC PEPTIDE 240 pg/mL (0-100)
[2019-11-27] MEDS ORDERED: IOHEXOL-350 75 ML VIAL IV ONE (14:34)
[2019-11-27 14:37] LABS: ERYTHROCYTE SEDIMENTATION RATE 56 MM/HR (0-30)
== END 2019-11-27 18:29 | disposition home or self-care (01) ==
LOC: EDH 12:34
DX: I31.9 Disease of pericardium, unspecified (principal); I10 Essential (primary) hypertension; E03.9 Hypothyroidism, unspecified; Z88.6 Allergy status to analgesic agent; Z90.49 Acquired absence of other specified parts of digestive tract; Z95.0 Presence of cardiac pacemaker
CPT/HCPCS: 36415; 71275; 80053; 83735; 83880; 84436; 84443; 84484; 85025; 85610; 85651; 85730; 86038; 86235; 86431; 93005; 93306; 99285; Q9967; 86215

== ENCOUNTER 2020-04-29 07:26 | Day surgery (SDC) | payer OTHER ==
[2020-04-25 12:15] VITALS: BP 131/65
[2020-04-25 12:43] LABS: BASOPHILS % (AUTO) 1.1 % (0.0-5.0); EOSINOPHILS % (AUTO) 1.7 % (0.0-8.0); HEMATOCRIT 43.4 % (36-48); LYMPHOCYTES % (AUTO) 11.1 % (21.0-51.0); MEAN CORPUSCULAR HEMOGLOBIN 31.2 pg (27.0-33.0); MEAN CORPUSCULAR VOLUME 97.3 fL (79-99); MONOCYTES % (AUTO) 8.5 % (3.0-13.0); NEUTROPHILS % (AUTO) 77.2 % (40.0-77.0); PLATELET COUNT (AUTO) 191 K/uL (130-400); RED BLOOD CELL COUNT(AUTO) 4.46 MIL/uL (4.00-5.50); RED CELL DISTRIBUTION WIDTH 13.2 % (11.0-15.5); WHITE BLOOD COUNT (AUTO) 5.3 K/uL (4.8-10.8)
[2020-04-25 13:04] LABS: CREATININE 1.1 mg/dL (0.5-1.5); POTASSIUM 4.7 mmol/L (3.5-5.1)
[2020-04-25 13:06] LABS: INR 1.05 (0.85-1.15); PROTHROMBIN TIME 11.4 SEC (9.6-11.6)
[2020-04-25 13:07] LABS: PARTIAL THROMBOPLASTIN TIME 24.8 SEC (26.3-35.5)
[~2020-04-29] VITALS: Ht 165.1 cm; Wt 60.3 kg
[2020-04-29] VITALS (11 sets, daily range): BP systolic 106–152; BP diastolic 51–86
[~2020-04-29 07:26] MED LIST changes: +ATOR40TA71 PO; +BIOT10006 PO; +CHOL500045 PO; +FERR159T2 PO; +FURO40TA5 PO; +GABA-529 PO; +L.AC1CAP6 PO; -LIDO700A30 TP; +MULT-1192 PO; +PANT40TA54 PO; +POTA99TA21 PO; +SODIUM CHLORIDE 0.9% 1000ML 1,000 ML IV SCH; +SPIR25TA6 PO; -SUCR1TAB2 PO; +VITA1CAP85 PO
[2020-04-29] MEDS ORDERED: BUPIVACAINE/PF 0.25% 30ML VIAL IJ ONE (09:45)
[2020-04-29] MEDS ORDERED: IODIXANOL 320 MG/ML 100 ML VIAL ONE (09:45)
[2020-04-29] MEDS ORDERED: MIDAZOLAM HCL 1 MG/ML 2ML VIAL ONE ×3 (09:46→10:42)
[2020-04-29] MEDS ORDERED: VANCOMYCIN 1GM+NS 250ML 500 ML IV ONE (09:46)
[2020-04-29] MEDS ORDERED: MEPERIDINE-PF 25 MG/ML SYG ONE (09:46)
[2020-04-29] MEDS ORDERED: LIDOCAINE HCL 1% MDV 50ML VIAL ONE (09:46)
[2020-04-29] MEDS ORDERED: DiphenhydrAMINE HCL 50 MG/ML VIAL ONE (09:53)
[2020-04-29] MEDS ORDERED: ONDANSETRON HCL 4 MG/2 ML VIAL IV PRN (11:15)
[2020-04-29] MEDS ORDERED: ACETAMINOPHEN 325 MG TAB ONE (12:41)
[2020-04-29] MEDS ORDERED: ACETAMINOPHEN 325 MG TAB PO ONE (13:40)
== END 2020-04-29 17:00 | disposition home or self-care (01) ==
LOC: DAH 07:26
PROVIDERS: ATTEND Internal Medicine Cardiovascular Disease
DX: I44.2 Atrioventricular block, complete (principal); I42.0 Dilated cardiomyopathy; I44.7 Left bundle-branch block, unspecified; I10 Essential (primary) hypertension; E66.9 Obesity, unspecified; I48.0 Paroxysmal atrial fibrillation; F41.9 Anxiety disorder, unspecified; F32.9 Major depressive disorder, single episode, unspecified; I25.10 Atherosclerotic heart disease of native coronary artery without angina pectoris; Z95.5 Presence of coronary angioplasty implant and graft; Z79.01 Long term (current) use of anticoagulants; Z85.3 Personal history of malignant neoplasm of breast; Z92.3 Personal history of irradiation; Z90.710 Acquired absence of both cervix and uterus; Z90.49 Acquired absence of other specified parts of digestive tract; Z98.890 Other specified postprocedural states; Z98.49 Cataract extraction status, unspecified eye; Z87.891 Personal history of nicotine dependence; Z88.0 Allergy status to penicillin; Z88.8 Allergy status to other drugs, medicaments and biological substances; Z88.6 Allergy status to analgesic agent; Z68.22 Body mass index [BMI] 22.0-22.9, adult
CPT/HCPCS: 33225; 33229; 36415; 71045; 80048; 85025; 85610; 85730; 93005; A4215; A4216; A4222; A4223 ×3; A4606; A4663; C1769 ×2; C1894; J1200; J2250 ×3; J3370; J3490 ×2; J7030; Q9967; 99156; 99157; J2175